=== PATIENT | male | born 1975 | race Caucasian/White ===

== ENCOUNTER 2019-05-24 15:12 | Emergency (ER) | payer MEDICAID ==
--- NOTE | 2019-05-24 16:00 | EDM.PDOC ---
ED HPI GENERAL MEDICAL PROBLEM - General Chief Complaint: Lower Extremity Injury/Pain Stated Complaint: INJURED RT FOOT Time Seen by Provider: 05/24/19 15:45 Source of Information: Reports: Patient History Limitations: Reports: No Limitations - History of Present Illness INITIAL COMMENTS - FREE TEXT/NARRATIVE: Patient states last Friday while loading horses on a trailer he felt a pain to his right side of his foot/ankle but denies any trauma. States over the last couple days he has been icing it able to walk on it and has taken a few Tylenol and been wearing a ankle brace last 24 hours but is not helping. He states he has had swelling and just able truly get his boot back on today but he wanted to come in x-ray to make sure there were no fractures and denies any loss of sensation or coldness numbness or tingling. He has no pain above the ankle Duration: Day(s): Location: Reports: Lower Extremity, Right Quality: Reports: Throbbing Severity: Mild Improves with: Reports: Cold Therapy, Medication Treatments WOOL BROKER: Reports: Acetaminophen - Related Data Allergies Allergy/AdvReac Type Severity Reaction Status Date / Time No Known Allergies Allergy Verified 07/13/15 05:31 Home Meds: Home Meds . [No Known Home Meds] 07/13/15 [History] Past Medical History - Past Health History Medical/Surgical History: Denies Medical/Surgical History Other HEENT History: past eye trauma at 6yrs old , multpile fbs from metal work Review of Systems - Review of Systems Review Of Systems: See Below Constitutional: Reports: No Symptoms Eyes: Reports: No Symptoms GI/Abdominal: Reports: No Symptoms Musculoskeletal: Reports: Foot Pain, Joint Pain, Joint Swelling Skin: Reports: Bruising Neurological: Reports: No Symptoms Psychiatric: Reports: No Symptoms ED EXAM, GENERAL - Physical Exam Exam: See Below Exam Limited By: No Limitations General Appearance: Alert, WD/WN, No Apparent Distress Neck: Full Range of Motion Respiratory/Chest: No Respiratory Distress, No Accessory Muscle Use Extremities: Normal Inspection, Normal Range of Motion, No Pedal Edema, Normal Capillary Refill, Other (Exam of the right ankle positive edema positive ecchymosis to the lateral aspects the foot he has no tenderness to palpation over the medial or lateral malleolus navicular fifth metatarsal and no tenderness palpation over the proximal tibia full range of motion with ankle and foot he is neurovascularly intact with strong dorsalis pedis posterior tibialis Refill). No: Non-Tender Neurological: Alert, CN II-XII Intact, Normal Cognition, Normal Gait, Normal Reflexes, No Motor/Sensory Deficits Psychiatric: Normal Affect Skin Exam: Warm, Dry, Intact, Normal Color, No Rash Course - Vital Signs Text/Narrative:: Right ankle 3 view ordered x-rays no acute findings Patient is to continue ice and elevate the extremity Tylenol and Motrin as directed [id number] follow directions on the box follow with her primary care provider in the next 48 hours patient is okay with treatment diagnosis follow-up Return to emergency room something changes or gets worse - Orders/Labs/Meds Orders: Active Orders 24 hr Category Date Time Status Ankle Min 3V Rt [CR] Stat Exams 05/24/19 15:54 Ordered Departure - Departure Time of Disposition: 16:15 Disposition: Home, Self-Care 01 Condition: Good Clinical Impression: Ankle pain, right - Discharge Information *PRESCRIPTION DRUG MONITORING PROGRAM REVIEWED*: No *COPY OF PRESCRIPTION DRUG MONITORING REPORT IN PATIENT RAÚL: No Instructions: Ankle Sprain, [id number] Forms: ED Department Discharge - Problem List & Annotations (1) Ankle pain, right SNOMED Code(s): 936374920, [id number] Code(s): M25.571 - PAIN IN RIGHT ANKLE AND JOINTS OF RIGHT FOOT Status: Acute Current Visit: Yes - My Orders Last 24 Hours: My Active Orders 05/24/19 15:54 Ankle Min 3V Rt [CR] Stat - Assessment/Plan Last 24 Hours: My Active Orders 05/24/19 15:54 Ankle Min 3V Rt [CR] Stat
[2019-05-24 17:22] VITALS: BP 134/77; PULSE 58
--- NOTE | 2019-05-24 17:59 | CR ---
[id number] RAD/RAD Ankle Right 3V Min EXAM: 3VIEWS RIGHT ANKLE. INDICATION: TRAUMA. COMPARISON: None. DISCUSSION: No fracture, dislocation or other osseous abnormality. Soft tissue edema primarily adjacent to the lateral malleolus. Mild degenerative changes of the right midfoot. IMPRESSION: 1. No acute osseous abnormalities. Lewis Oswald DO 05/24/19 [id number] Thank you for allowing us to participate in the care of your patient.
== END 2019-05-24 16:40 | disposition home or self-care (01) ==
LOC: VM.ED 15:12
DX: S90.01XA Contusion of right ankle, initial encounter (principal); X50.1XXA Overexertion from prolonged static or awkward postures, initial encounter
CPT/HCPCS: 73610-RT; 99283-25

== ENCOUNTER 2019-09-13 17:51 | Emergency (ER) | payer MEDICAID ==
[2019-09-13] MEDS ORDERED: Sodium Chloride 0.9% 10 ML Syringe FLUSH PRN (18:14)
[2019-09-13] MEDS ORDERED: HYDROmorphone 1 MG/ML Syringe IVPUSH ONE (18:15)
[2019-09-13 19:05] LABS: ANION GAP 15.5 mmol/L (10-20); CHLORIDE,CL 102 mmol/L (98-107); SODIUM,NA 139 mmol/L (136-145)
[2019-09-13] MEDS ORDERED: Iopamidol 612 MG/ML 100 ML Bottle IVPUSH ONE (19:14)
[2019-09-13 19:37] VITALS: BP 128/80; PULSE 68
--- NOTE | 2019-09-13 20:03 | CT ---
[id number] CT/CT Abdomen Pelvis W IV EXAM: CT Abdomen Pelvis W IV CLINICAL DATA: LLQ ABDOMINAL PAIN, ELEVATED WBCS COMPARISON STUDY: None. FINDINGS: Lung bases are clear. There are a few scattered subcentimeter hypodensities within the liver which are incompletely evaluated on this study. The gallbladder, spleen, pancreas, adrenal glands are unremarkable. There is a 0.6 cm stone just distal to the left vesicoureteral junction. There is resulting mild left hydroureteronephrosis. Punctate nonobstructing right renal calculus. Bilateral renal cysts. No right hydronephrosis or hydroureter. No bowel obstruction or inflammation. The appendix is visualized and appears normal. No lymphadenopathy, free fluid, or pneumoperitoneum. Scattered changes of spondylosis the spine. No fracture or osseous lesion. IMPRESSION: 1. A 6 mm stone just distal to the left vesicoureteral junction. There is resulting mild left hydroureteronephrosis. Punctate nonobstructing right renal calculus. 2. A few scattered subcentimeter hypodensities within the liver are too small to adequately characterize. Multi phase MRI of the liver could be considered on a nonemergent basis once the patient has recovered from their acute illness for complete evaluation. Lewis Oswald DO 09/13/192001 Thank you for allowing us to participate in the care of your patient.
[2019-09-13] MEDS ORDERED: Take Home: Acetaminophen/HYDROcodone 325-10 MG, 5 Tab Pack PO ONE (20:22)
[2019-09-13] MEDS ORDERED: Tamsulosin 0.4 MG Cap.ER PO ONE (20:23)
--- NOTE | 2019-09-13 22:08 | EDM.PDOC ---
ED HPI GENERAL MEDICAL PROBLEM - General Chief Complaint: Abdominal Pain Stated Complaint: ABDOMENIL PAIN LEFT SIDE Time Seen by Provider: 09/13/19 18:10 Source of Information: Reports: Patient History Limitations: Reports: No Limitations - History of Present Illness INITIAL COMMENTS - FREE TEXT/NARRATIVE: Pt. presents to ER with complaints of intermittent LLQ abdominal discomfort that started yesterday. He states that the discomfort is extremely sharp and almost causes him to "pass out". Denies any fever or chills. No nausea, vomiting , or diarrhea. Denies any blood in his stools. No gross hematuria or dysuria noted. Pt. complains of nausea and vomiting. Onset Date: 09/12/19 Location: Reports: Abdomen Associated Symptoms: Reports: Nausea/Vomiting Left Lower Abdomen Pain Score (Numeric/FACES): 4 - Related Data Allergies Allergy/AdvReac Type Severity Reaction Status Date / Time No Known Allergies Allergy Verified 09/13/19 19:27 Home Meds: Home Meds . [No Known Home Meds] 07/13/15 [History] Past Medical History - Past Health History Medical/Surgical History: Denies Medical/Surgical History Other HEENT History: past eye trauma at 6yrs old , multpile fbs from metal work Social & Family History - Tobacco Use Smoking Status *Q: Current Every Day Smoker Years of Tobacco use: 30 Packs/Tins Daily: 2 - Recreational Drug Use Recreational Drug Use: Yes Drug Use in Last 12 Months: Yes Recreational Drug Type: Reports: Marijuana/Hashish Recreational Drug Use Frequency: Socially ED ROS GENERAL - Review of Systems Review Of Systems: See Below Constitutional: Denies: Fever, Chills HEENT: Reports: No Symptoms Respiratory: Reports: No Symptoms Cardiovascular: Reports: No Symptoms Endocrine: Reports: No Symptoms GI/Abdominal: Reports: Abdominal Pain : Reports: No Symptoms. Denies: Flank Pain Musculoskeletal: Reports: No Symptoms Skin: Reports: No Symptoms Neurological: Reports: No Symptoms Psychiatric: Reports: No Symptoms Hematologic/Lymphatic: Reports: No Symptoms Immunologic: Reports: No Symptoms ED EXAM, GENERAL - Physical Exam Exam: See Below Exam Limited By: No Limitations General Appearance: Alert, WD/WN, Moderate Distress Throat/Mouth: No Airway Compromise Head: Atraumatic, Normocephalic Respiratory/Chest: No Respiratory Distress, Lungs Clear, Normal Breath Sounds, Chest Non-Tender Cardiovascular: Normal Peripheral Pulses, Regular Rate, Rhythm, No Edema GI/Abdominal: Normal Bowel Sounds, Soft, Tender (discomfort in LLQ with increased pain with palpation. No quarding or rigidity. No obvious swelling or hernia.) (Male) Exam: No Hernia. No: Hernia, Inguinal Lymphadenopathy Extremities: Normal Inspection, Normal Range of Motion, Non-Tender, No Pedal Edema, Normal Capillary Refill Neurological: Alert, Oriented, CN II-XII Intact, Normal Cognition Course - Vital Signs Last Recorded V/S: Last Vital Signs Temp 36.4 C 09/13/19 18:00 Pulse 68 09/13/19 18:55 Resp 16 09/13/19 18:55 BP 128/80 09/13/19 18:55 Pulse Ox 98 09/13/19 18:55 - Orders/Labs/Meds Orders: Active Orders 24 hr Category Date Time Status Sodium Chloride 0.9% [Saline Flush] Med 09/13/19 18:14 Active 10 ml FLUSH ASDIRECTED PRN Peripheral IV Insertion Adult [OM.PC] Routine Oth 09/13/19 18:14 Ordered Medication Orders Sodium Chloride (Saline Flush) 10 ml FLUSH ASDIRECTED PRN PRN Reason: Keep Vein Open Last Admin: 09/13/19 18:39 Dose: 10 ml Labs: Laboratory Tests 09/13/19 09/13/19 09/13/19 Range/Units 18:34 18:34 18:34 WBC 10.9 H (4.0-10.0) x10^3/uL RBC 4.75 (4.5-6.0) x10^6/uL Hgb 14.4 (14.0-18.0) g/dL Hct 42.6 (40.0-52.0) % MCV 89.7 (78.0-93.0) fL MCH 30.3 (26.0-32.0) pg MCHC 33.8 (32.0-36.0) g/dL RDW Coeff of Don 13.1 (10.0-15.0) % Plt Count 276 (130-400) x10^3/uL Neut % (Auto) 81.9 H (50.0-80.0) % Lymph % (Auto) 9.8 L (25.0-50.0) % Burnet % (Auto) 8.1 (2.0-11.0) % Eos % (Auto) 0.0 (0.0-4.0) % Baso % (Auto) 0.2 (0.2-1.2) % PT 10.8 (10.0-12.8) SEC INR 1.0 L (2.0-3.5) Sodium 139 (136-145) mmol/L Potassium 4.5 (3.5-5.1) mmol/L Chloride 102 (98-107) mmol/L Carbon Dioxide 26 (21-32) mmol/L Anion Gap 15.5 (10-20) mmol/L BUN 18 (7-18) mg/dL Creatinine 1.4 H (0.70-1.30) mg/dL Est Cr Clr Drug Dosing TNP Estimated GFR (MDRD) 55 Glucose 171 H (74-106) mg/dL Calcium 9.3 (8.5-10.1) mg/dL Corrected Calcium 9.70 (8.5-10.1) mg/dL Total Bilirubin 0.5 (0.2-1.0) mg/dL AST 18 (15-37) U/L ALT 31 (16-63) U/L Alkaline Phosphatase 92 (46-116) U/L C-Reactive Protein 0.5 (<=0.9) mg/dL Total Protein 7.4 (6.4-8.2) g/dL Albumin 3.5 (3.4-5.0) g/dL Globulin 3.9 Albumin/Globulin Ratio 0.90 Urine Color (YELLOW) Urine Appearance (CLEAR) Urine pH (5.0-8.0) Ur Specific Wright Urine Protein (NEGATIVE) mg/dL Urine Glucose (UA) (NEGATIVE) mg/dL Urine Ketones (NEGATIVE) mg/dL Urine Occult Blood (NEGATIVE) Urine Nitrite (NEGATIVE) Urine Bilirubin (NEGATIVE) Urine Urobilinogen (0.2) EU/dL Ur Leukocyte Esterase (NEGATIVE) Urine RBC (NOT SEEN) /HPF Urine WBC (NOT SEEN) /HPF Ur Squamous Epith Cells (NEGATIVE) /HPF Urine Bacteria (NEGATIVE) /HPF Urine Mucus (NEGATIVE) /LPF 09/13/ Range/Units 19:05 WBC (4.0-10.0) x10^3/uL RBC (4.5-6.0) x10^6/uL Hgb (14.0-18.0) g/dL Hct (40.0-52.0) % MCV (78.0-93.0) fL MCH (26.0-32.0) pg MCHC (32.0-36.0) g/dL RDW Coeff of Don (10.0-15.0) % Plt Count (130-400) x10^3/uL Neut % (Auto) (50.0-80.0) % Lymph % (Auto) (25.0-50.0) % Burnet % (Auto) (2.0-11.0) % Eos % (Auto) (0.0-4.0) % Baso % (Auto) (0.2-1.2) % PT (10.0-12.8) SEC INR (2.0-3.5) Sodium (136-145) mmol/L Potassium (3.5-5.1) mmol/L Chloride (98-107) mmol/L Carbon Dioxide (21-32) mmol/L Anion Gap (10-20) mmol/L BUN (7-18) mg/dL Creatinine (0.70-1.30) mg/dL Est Cr Clr Drug Dosing Estimated GFR (MDRD) Glucose (74-106) mg/dL Calcium (8.5-10.1) mg/dL Corrected Calcium (8.5-10.1) mg/dL Total Bilirubin (0.2-1.0) mg/dL AST (15-37) U/L ALT (16-63) U/L Alkaline Phosphatase (46-116) U/L C-Reactive Protein (<=0.9) mg/dL Total Protein (6.4-8.2) g/dL Albumin (3.4-5.0) g/dL Globulin Albumin/Globulin Ratio Urine Color Irene H (YELLOW) Urine Appearance Turbid H (CLEAR) Urine pH 6.5 (5.0-8.0) Ur Specific Wright 1.025 Urine Protein 30 H (NEGATIVE) mg/dL Urine Glucose (UA) Negative (NEGATIVE) mg/dL Urine Ketones 40 H (NEGATIVE) mg/dL Urine Occult Blood Large H (NEGATIVE) Urine Nitrite Negative (NEGATIVE) Urine Bilirubin Small H (NEGATIVE) Urine Urobilinogen 1.0 (0.2) EU/dL Ur Leukocyte Esterase Negative (NEGATIVE) Urine RBC >100 H (NOT SEEN) /HPF Urine WBC 0-5 (NOT SEEN) /HPF Ur Squamous Epith Cells Occasional H (NEGATIVE) /HPF Urine Bacteria Few H (NEGATIVE) /HPF Urine Mucus Moderate H (NEGATIVE) /LPF Meds: Medications Generic Name Dose Route Start Last Admin Trade Name Talya PRN Reason Stop Dose Admin Sodium Chloride 10 ml 09/13/19 18:14 09/13/19 18:39 Saline Flush FLUSH 10 ml ASDIRECTED PRN Administration Keep Vein Open Discontinued Medications Generic Name Dose Route Start Last Admin Trade Name Talay PRN Reason Stop Dose Admin Hydrocodone Bitart/Acetaminophen 1 packet 09/13/19 20:22 09/13/19 20:32 Take Home: Acetaminophen/Hydrocodone 325-10mg PO 09/13/19 20:23 1 packet ONETIME ONE Administration Hydromorphone HCl 1 mg 09/13/19 18:15 09/13/19 18:39 Dilaudid IVPUSH 09/13/19 18:16 1 mg ONETIME ONE Administration Iopamidol 100 ml 09/13/19 19:14 09/13/19 19:25 Isovue-300 (61%) IVPUSH 09/13/19 19:15 100 ml ONETIME ONE Administration Tamsulosin HCl 0.4 mg 09/13/19 20:23 09/13/19 20:32 Flomax PO 09/13/19 20:24 0.4 mg ONETIME ONE Administration - Radiology Interpretation Free Text/Narrative:: 6 mm stone noted at L UVJ. Mild hydro. Several other small intrarenal stones noted. No other acute cause for pain identified. He has several scattered hypodensities to liver with outpatient follow-up possibly considered. Departure - Departure Time of Disposition: 20:00 Disposition: Home, Self-Care 01 Clinical Impression: Kidney stone on left side - Discharge Information Instructions: Kidney Stones Referrals: PCP,None [Primary Care Provider] - Forms: ED Department Discharge Additional Instructions: Strain urine. Collect stones and take to clinic for analysis. Flomax 0.4mg once daily to assist in passage of stone Comfort 10/325mg 1 every 4-6 hours as needed for pain Ibuprofen 200mg 3 tabs every 6 hours as needed for pain. Sepsis Event Note - Evaluation Sepsis Screening Result: No Definite Risk - Focused Exam Vital Signs: Vital Signs Temp Pulse Resp BP Pulse Ox 09/13/19 18:55 68 16 128/80 98 09/13/19 18:00 36.4 C 72 16 137/89 98 Date Exam was Performed: 09/13/19 Time Exam was Performed: 22:03 - My Orders Last 24 Hours: My Active Orders 09/13/19 18:14 Sodium Chloride 0.9% [Saline Flush] 10 ml FLUSH ASDIRECTED PRN Peripheral IV Insertion Adult [OM.PC] Routine - Assessment/Plan Last 24 Hours: My Active Orders 09/13/19 18:14 Sodium Chloride 0.9% [Saline Flush] 10 ml FLUSH ASDIRECTED PRN Peripheral IV Insertion Adult [OM.PC] Routine Plan: Strain urine. Collect stones and take to clinic for analysis. Flomax 0.4mg once daily to assist in passage of stone Comfort 10/325mg 1 every 4-6 hours as needed for pain Ibuprofen 200mg 3 tabs every 6 hours as needed for pain.
== END 2019-09-13 20:42 | disposition home or self-care (01) ==
LOC: VM.ED 17:51
DX: N13.2 Hydronephrosis with renal and ureteral calculous obstruction (principal); F17.210 Nicotine dependence, cigarettes, uncomplicated
CPT/HCPCS: 36415; 74177; 80053; 81001; 85025; 85610; 86140; 96374; 99284-25; 99284-GF; A9270-GY; J1170; Q9967

== ENCOUNTER 2022-09-01 19:35 | Emergency (ER) | payer MEDICAID ==
[2022-09-01 20:24] VITALS: BP 101/67; PULSE 46
[2022-09-01] MEDS ORDERED: Take Home: Ketorolac 10 MG Tab, 4 Tab Pack PO ONE (21:02)
[2022-09-01] MEDS ORDERED: Take Home: predniSONE 20 MG, 2 Tab Pack PO ONE (21:02)
== END 2022-09-01 21:29 | disposition home or self-care (01) ==
LOC: VM.ED 19:35
DX: M77.8 Other enthesopathies, not elsewhere classified (principal); Z72.0 Tobacco use
CPT/HCPCS: 73562-RT; 99283; A9270-GY; J7512